=== PATIENT | male | born 1965 | race Caucasian/White ===

== ENCOUNTER 2016-11-11 18:58 | Emergency (ER) | payer OTHER ==
[~2016-11-11] VITALS: Ht 167.6 cm; Wt 108.9 kg
--- NOTE | 2016-11-11 19:29 | PHYS DOC ---
Adult General Chief Complaint Chief Complaint: RIB PAIN HPI HPI Patient is a 51 year old male presents to the emergency Department complaint of right lower chest right upper abdominal pain. He states that he was turning the crank on an 18 wheel trailer lifting the legs when he slipped in his chest struck the handle of the crank he states that this happened approximate 4-1/2 hours prior to arrival. He took ibuprofen Amelio after the incident. He reports no shortness of breath, no cough. He does complain of pain with deep inspiration and pain in the right upper quadrant. No nausea, no vomiting. Review of Systems Review of Systems Constitutional: Denies fever or chills [] Eyes: Denies change in visual acuity, redness, or eye pain [] HENT: Denies nasal congestion or sore throat [] Respiratory: Pain with deep inspiration Cardiovascular: No additional information not addressed in HPI [] GI: Right upper quadrant pain : Denies dysuria or hematuria [] Musculoskeletal: Denies back pain or joint pain [] Integument: Abrasion right chest wall Neurologic: Denies headache, focal weakness or sensory changes [] Endocrine: Denies polyuria or polydipsia [] Current Medications Current Medications Current Medications Medications (Trade) Dose Ordered Sig/Shelby Start Time Stop Time Status Last Admin Dose Admin Fentanyl Citrate (Fentanyl 2ml Vial) 50 mcg 1X ONCE 11/11/16 20:00 11/11/16 20:01 DC 11/11/16 19:53 50 MCG Iohexol (Omnipaque 300 Mg/ml) 75 ml 1X ONCE 11/11/16 20:00 11/11/16 20:01 DC 11/11/16 20:11 75 ML Ondansetron HCl (Zofran) 4 mg 1X ONCE 11/11/16 20:00 11/11/16 20:01 DC 11/11/16 19:53 4 MG Sodium Chloride 1,000 ml @ 1,000 mls/hr 1X ONCE 11/11/16 20:00 11/11/16 20:59 11/11/16 19:54 1,000 MLS/HR Allergies Allergies Allergies Coded Allergies Type Severity Reaction Last Updated Verified No Known Drug Allergies 11/11/16 No Physical Exam Physical Exam Constitutional: Well developed, well nourished, no acute distress, non-toxic appearance. [] HENT: Normocephalic, atraumatic, bilateral external ears normal, oropharynx moist, no oral exudates, nose normal. [] Eyes: PERRLA, EOMI, conjunctiva normal, no discharge. [] Neck: Normal range of motion, no tenderness, supple, no stridor. [] Cardiovascular:Heart rate regular rhythm, no murmur [] Lungs & Thorax: Right lower chest wall with 3 cm x 8 cm erythematous abrasion with ecchymosis at extends to the border of the lower rib. There is no crepitus , symmetrical chest wall movement with inspiration and expiration. No evidence of flail chest. Bilateral breath sounds clear to auscultation [] Abdomen: Bowel sounds normal, soft, tenderness to palpate in the right upper quadrant and epigastric. Skin: Warm, dry, no erythema, no rash. [] Back: No tenderness, no CVA tenderness. [] Extremities: No tenderness, no cyanosis, no clubbing, ROM intact, no edema. [] Neurologic: Alert and oriented X 3, normal motor function, normal sensory function, no focal deficits noted. [] Current Patient Data Vital Signs Vital Signs Date Time Temp Pulse Resp B/P (MAP) Pulse Ox O2 Delivery O2 Flow Rate FiO2 11/11/16 19:59 96 20 155/82 (106) 98 Room Air 11/11/16 19:14 98.1 98.1 Lab Values Laboratory Tests Test 11/11/16 19:43 11/11/16 19:49 White Blood Count 10.7 x10^3/uL (4.0-11.0) Red Blood Count 4.32 x10^6/uL (4.30-5.70) Hemoglobin 12.9 g/dL (13.0-17.5) L Hematocrit 38.1 % (39.0-53.0) L Mean Corpuscular Volume 88 fL (79-100) Mean Corpuscular Hemoglobin 30 pg (25-35) Mean Corpuscular Hemoglobin Concent 34 g/dL (31-37) Red Cell Distribution Width 14.0 % (11.5-14.5) Platelet Count 212 x10^3/uL (140-400) Neutrophils (%) (Auto) 75 % (31-73) H Lymphocytes (%) (Auto) 19 % (24-48) L Monocytes (%) (Auto) 5 % (0-9) Eosinophils (%) (Auto) 1 % (0-3) Basophils (%) (Auto) 1 % (0-3) Neutrophils # (Auto) 8.0 x10^3uL (1.8-7.7) H Lymphocytes # (Auto) 2.0 x10^3/uL (1.0-4.8) Monocytes # (Auto) 0.5 x10^3/uL (0.0-1.1) Eosinophils # (Auto) 0.1 x10^3/uL (0.0-0.7) Basophils # (Auto) 0.1 x10^3/uL (0.0-0.2) Sodium Level 142 mmol/L (136-145) Potassium Level 3.6 mmol/L (3.5-5.1) Chloride Level 106 mmol/L (98-107) Carbon Dioxide Level 26 mmol/L (21-32) Anion Gap 10 (6-14) 15 mmol/L (6-14) H Blood Urea Nitrogen 29 mg/dL (8-26) H Creatinine 0.9 mg/dL (0.7-1.3) Estimated GFR (Cockcroft-Gault) 88.3 BUN/Creatinine Ratio 32 (6-20) H Glucose Level 185 mg/dL (70-99) H 173 mg/dL (70-99) H Calcium Level 8.5 mg/dL (8.5-10.1) Total Bilirubin 1.0 mg/dL (0.2-1.0) Aspartate Amino Transferase (AST) 18 U/L (15-37) Alanine Aminotransferase (ALT) 28 U/L (16-63) Alkaline Phosphatase 108 U/L (46-116) Total Protein 7.2 g/dL (6.4-8.2) Albumin 3.7 g/dL (3.4-5.0) Albumin/Globulin Ratio 1.1 (1.0-1.7) POC Hemoglobin 12.9 g/dL (14-18) L POC Hematocrit 38 % (37-52) POC Sodium 142 mmol/L (135-145) POC Potassium 3.6 mmol/L (3.5-5.0) POC Chloride 106 mmol/L (98-110) POC Total CO2 25 mmol/L (23-32) POC Blood Urea Nitrogen 29 mg/dL (8-26) H POC Creatinine 0.9 mg/dL (0.5-1.4) POC Ionized Calcium (Seun) 1.11 mmol/L (1.13-1.32) L Laboratory Tests 11/11/16 19:43 Laboratory Tests 11/11/16 19:43 11/11/16 19:49 EKG EKG [] Radiology/Procedures Radiology/Procedures [][facility] [address] [place] [address] IMAGING REPORT Signed PATIENT: MEI ZACARIAS ACCOUNT: [id number] : 1965 LOCATION: ER AGE: 51 SEX: M EXAM STATUS: REG ER ORD. PHYSICIAN: HAYLIE CANO APRN REASON: trauma to chest and upper abd PROCEDURE: CT CHEST ABDOMEN W/CONTRAST CT CHEST Indication: fall, severe pain rt chest and upper abd, [id number] 75ml, no priors Technique: Multiple contiguous axial images were obtained through the chest after administration of iodinated contrast. Coronal and sagittal reformations were created. Findings: There is no thoracic adenopathy. The heart size is normal. There is no pericardial effusion. The thoracic aorta is normal in caliber. There is no consolidating infiltrate. There is no pleural effusion. No pneumothorax. The osseous structures are unremarkable. Limited subdiaphragmatic evaluation is unremarkable. There is a simple contains contusion over the right chest. Impression: Subcutaneous contusion over the right chest. No evidence for rib fracture or acute intrathoracic injury. End impression CT ABDOMEN Indication: fall, severe pain rt chest and upper abd, [id number] 75ml, no priors Technique: Multiple contiguous axial images were obtained through the abdomen after administration of intravenous iodinated contrast. Coronal and sagittal reformations were created. PQRS STATEMENT One or more of the following in the visualized dose reduction techniques were utilized for this study: 1. Automatic exposure control, 2. Adjustment of the mA and/or kV according to patient size, 3. Use of iterative reconstruction technique ---- Findings: The heart size is normal. The lung bases are clear. The liver is normal in size with no focal lesion identified. The gallbladder is nondistended. The pancreas, spleen, and adrenal glands are within normal limits. The kidneys are unremarkable. The portal vein and SMV are patent. The abdominal aorta is normal in caliber. There is no abdominopelvic ascites or adenopathy. The visualized bowel loops are normal in caliber. No destructive osseus lesions are identified. Impression: No evidence for abdominal visceral injury or hemoperitoneum. Electronically signed by: Aaron Del Valle MD (11/11/2016 8:38 PM) [facility] DICTATED and SIGNED BY: AARON DEL VALLE MD DATE: 11/11/162028 CC: NON,STAFF; HAYLIE CANO APRN; UNKNOWN PCP NAME ~ Course & Med Decision Making Course & Med Decision Making Pertinent Labs and Imaging studies reviewed. (See chart for details) [] Evaluation: Patient states he feels significantly better, continues complaining of mild pain in right anterior chest site of injury. He'll be given a dose of [place] 5 mg by mouth prior to discharge. Dragon Disclaimer Dragon Disclaimer This electronic medical record was generated, in whole or in part, using a voice recognition dictation system. Departure Departure Impression: Primary Impression: Contusion, chest wall Disposition: 01 HOME, SELF-CARE Condition: STABLE Patient Instructions: Chest Contusion Additional Instructions: Follow-up with Workmen's Comp. provider tomorrow for return to work and work restrictions Scripts Naproxen (NAPROSYN) 500 Mg Tablet 500 MG PO BID, #20 TAB Prov: HAYLIE CANO APRN 11/11/16 Hydrocodone/Apap 5-325 (NORCO 5-325 TABLET) 1 Each Tablet 1 TAB PO TID Y for sever pain, #12 TAB Prov: HAYLIE CANO APRN 11/11/16 HAYLIE CANO APRN Nov 11, 2016 19:29
[2016-11-11 19:51] LABS: BASO # 0.1 x10^3/uL (0.0-0.2); BASO % 1 % (0-3); EOS % 1 % (0-3); HEMATOCRIT 38.1 % (39.0-53.0); HEMOGLOBIN 12.9 g/dL (13.0-17.5); LYMPH % 19 % (24-48); MEAN CORPUSCULAR HEMOGLOBIN 30 pg (25-35); MEAN CORPUSCULAR HGB CONC 34 g/dL (31-37); MEAN CORPUSCULAR VOLUME 88 fL (79-100); MONO % 5 % (0-9); NEUT % 75 % (31-73); PLATELET COUNT 212 x10^3/uL (140-400); RED BLOOD COUNT 4.32 x10^6/uL (4.30-5.70); WHITE BLOOD COUNT 10.7 x10^3/uL (4.0-11.0)
[2016-11-11 19:56] LABS: POTASSIUM ISTAT 3.6 mmol/L (3.5-5.0)
[2016-11-11] MEDS ORDERED: IV NORMAL SALINE 1000ML BAG 1,000 ML IV ONE (20:00)
[2016-11-11] MEDS ORDERED: fentaNYL PF VIAL 100 MCG/2 ML VIAL IV ONE (20:00)
[2016-11-11] MEDS ORDERED: ONDANSETRON PF 4 MG/2 ML VIAL. IV ONE (20:00)
[2016-11-11] MEDS ORDERED: IOHEXOL 300 MG/ML 75 ML VIAL IV ONE (20:00)
[2016-11-11 20:12] LABS: CALCIUM 8.5 mg/dL (8.5-10.1); CREATININE 0.9 mg/dL (0.7-1.3); GFR 88.3; POTASSIUM 3.6 mmol/L (3.5-5.1)
[2016-11-11 20:18] LABS: ALBUMIN 3.7 g/dL (3.4-5.0); ALBUMIN/GLOBULIN RATIO 1.1 (1.0-1.7); TOTAL PROTEIN 7.2 g/dL (6.4-8.2)
--- NOTE | 2016-11-11 20:41 | RAD ---
CT CHEST Indication: fall, severe pain rt chest and upper abd, [id number] 75ml, no priors Technique: Multiple contiguous axial images were obtained through the chest after administration of iodinated contrast. Coronal and sagittal reformations were created. Findings: There is no thoracic adenopathy. The heart size is normal. There is no pericardial effusion. The thoracic aorta is normal in caliber. There is no consolidating infiltrate. There is no pleural effusion. No pneumothorax. The osseous structures are unremarkable. Limited subdiaphragmatic evaluation is unremarkable. There is a simple contains contusion over the right chest. Impression: Subcutaneous contusion over the right chest. No evidence for rib fracture or acute intrathoracic injury. End impression CT ABDOMEN Indication: fall, severe pain rt chest and upper abd, [id number] 75ml, no priors Technique: Multiple contiguous axial images were obtained through the abdomen after administration of intravenous iodinated contrast. Coronal and sagittal reformations were created. PQRS STATEMENT One or more of the following in the visualized dose reduction techniques were utilized for this study: 1. Automatic exposure control, 2. Adjustment of the mA and/or kV according to patient size, 3. Use of iterative reconstruction technique ---- Findings: The heart size is normal. The lung bases are clear. The liver is normal in size with no focal lesion identified. The gallbladder is nondistended. The pancreas, spleen, and adrenal glands are within normal limits. The kidneys are unremarkable. The portal vein and SMV are patent. The abdominal aorta is normal in caliber. There is no abdominopelvic ascites or adenopathy. The visualized bowel loops are normal in caliber. No destructive osseus lesions are identified. Impression: No evidence for abdominal visceral injury or hemoperitoneum. Electronically signed by: Aaron Stoll MD (11/11/2016 8:38 PM) [facility]
[2016-11-11] MEDS ORDERED: NAPR500T PO (20:54)
[2016-11-11] MEDS ORDERED: HYDR-971 PO (20:54)
[2016-11-11] MEDS ORDERED: HYDROcodone/APAP 5/325MG 1 TAB TABLET PO ONE (21:00)
[2016-11-11 21:06] VITALS: BP 143/87
== END 2016-11-11 21:20 | disposition home or self-care (01) ==
LOC: ER 18:58
DX: S20.211A Contusion of right front wall of thorax, initial encounter (principal); R10.13 Epigastric pain; R10.11 Right upper quadrant pain; W22.8XXA Striking against or struck by other objects, initial encounter; Y93.89 Activity, other specified; Y92.89 Other specified places as the place of occurrence of the external cause; Y99.8 Other external cause status
CPT/HCPCS: 36415; 71260; 74160; 80047; 80053; 85027; 96361; 96374; 96375; 99285; C1887; J2405; J3010; J7030; Q9967